=== PATIENT | female | born 1940 | race Caucasian/White ===

== ENCOUNTER 2022-09-15 11:32 | Emergency (ER) | payer MEDICARE, BC, SELFPAY ==
[2022-09-15 11:58] VITALS: BP 121/70; PULSE 64; RESP 16; TEMP 36.2; O2SAT 97; BMI 19.1
--- NOTE | 2022-09-15 12:08 | ED.BACK ---
HPI - Back Pain/Injury General Time Seen by Provider: 12:08 Date Seen: 09/15/22 Chief Complaint: Back Injury/Pain Stated Complaint: Lower L back pain Time Seen by Provider: 09/15/22 12:08 Source: patient and RN notes reviewed Mode of arrival: ambulatory Limitations: no limitations History of Present Illness HPI Narrative: Shasha is a very pleasant 82-year-old female with history of scoliosis, osteopenia who comes to the emergency room for evaluation of back pain. Patient notes the onset of back pain this morning with no significant injury. Patient notes that she did trip in the garden yesterday but did not fall. No significant pain at that time. She is showing me the area just to the left of L3-L2. She notes that this has been associated with nausea and retching. She has not had any diarrhea and in fact notes a few normal bowel movements. This is never happened to her before and she describes a very high pain tolerance. She did not take any medications prior to arrival at the ER. She notes that it is very difficult to lay flat and her position of choice is sitting in the rocking chair today. Shasha unfortunately lost her approximately 5 months ago. She had a memorial service for him on the [facility] at the very beginning of August and did a an extensive amount of driving throughout the [place] during that time. She did return and had a UTI that was treated. Since that time she has had no further symptoms. Related Data Home Medications Medication Instructions Recorded Confirmed epinephrine 0.3 mg/0.3 mL IM 09/15/22 injection, auto-injector mycophenolate mofetil 500 mg tablet 500 mg PO BID 09/15/22 09/15/22 Previous Rx's Medication Instructions Recorded finasteride 5 mg tablet 2.5 mg (1/2 x 5 mg) PO QDAY #45 08/06/22 tabs triamcinolone acetonide 0.1 % 1 applic topical BID #30 grams 08/06/22 topical cream Allergies Allergy/AdvReac Type Severity Reaction Status Date / Time bee venom protein (honey bee) Allergy Severe Anaphylaxis Verified 09/15/22 13:36 ciprofloxacin Allergy Unknown myasthenia Verified 09/15/22 13:36 gravis Review of Systems Status of ROS: Reports: 10 or more systems reviewed and unremarkable except as noted in History and below Const: Denies: fever or chills ENMT: Denies: neck pain or difficulty swallowing Cardio: Denies: chest pain, swelling of feet/ankles or shortness of breath with exertion Resp: Denies: shortness of breath or cough GI: Reports: nausea and vomiting; Denies: abdominal pain, difficulty swallowing or blood in stool : Denies: painful urination, urinary frequency, urinary urgency or blood in urine Musculo: Reports: back pain; Denies: neck pain or extremity pain Endo: Denies: excessive urination PFSH PFS Medical History History of thrombocytopenia ?Z86.2 - Personal history of diseases of the blood and blood-forming organs and certain disorders involving the immune mechanism (ICD-10) History of seborrheic keratosis ?Z87.2 - Personal history of diseases of the skin and subcutaneous tissue (ICD-10) History of scarlet fever ?Z86.19 - Personal history of other infectious and parasitic diseases (ICD-10) Hair loss ?L65.9 - Nonscarring hair loss, unspecified (ICD-10) Surgical History Status post bunionectomy ?Z98.890 - Other specified postprocedural states (ICD-10) History of tubal ligation (1974) ?Z98.51 - Tubal ligation status (ICD-10) History of loop electrical excision procedure (LEEP) (03/14/06) ?Z98.890 - Other specified postprocedural states (ICD-10) Family History Father Myocardial infarction, Onset Age: 69 Mother Skin cancer Other Lung cancer Social History Narrative: exercises daily- walking, yoga , 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 Very pleasant well-spoken woman in no acute distress. Very thin. Heart with regular rate and rhythm. Lungs are clear bilaterally. Palpation of spine yields no tenderness. Obvious curvature of the spine. Minimal tenderness noted just to the left of the L2-L3 lateral process. No skin changes are noted no evidence of lesions/shingles type picture. Patient is able to stand up and is moving without difficulty. Moving all extremities. Abdomen is soft and nontender. Const: Vital Signs, click to edit/add: Vital Signs - 24 hr 09/15/22 11:58 Temperature 97.2 F L Pulse Rate [Right Pulse Oximeter] 64 Respiratory Rate 16 Blood Pressure [Ri ght Upper Arm] 121/70 Pulse Oximetry 97 Oxygen Delivery Me thod Room Air Documenting provider has reviewed patient's vital signs: yes Course Course Hospital Course: At this time patient presents with the sudden onset of left low back flank pain. She has associated retching and nausea but no diarrhea fever chills urinary symptoms. Her pain or does appear to be out of proportion to exam. She is not currently on any blood thinners. Differential diagnosis includes but is not limited to UTI, pyelonephritis, compression fracture, retroperitoneal pathology, muscular skeletal strain, ureteral colic/nephrolithiasis, shingles. At this time do recommend abdominal CT as well as lumbar CT. Will also check CBC, comprehensive, CRP and urinalysis. Shasha's daughter is coming here and thus she is receptive to pain meds. Will use Zofran 4 mg and morphine 4 mg. Will also give 1 L normal saline. Reevaluation(s) Reevaluation #1: Patient's family now present. Very loving and supportive. Patient notes that she had started feeling better prior to the placement of the IV and feels even better after morphine and Zofran. Patient has history of the shingles vaccine in no previous history of shingles. I did tell her I did not see any lesions or suspicious areas but should we not find etiology of her discomfort on the CT this would be a consideration. Patient feels like she could urinate at this time. Vital Signs Vital signs: Initial Vital Signs Temperature 97.2 F L 09/15/22 11:58 Temperature Source Temporal Artery Scan 09/15/22 11:58 Pulse Rate 64 09/15/22 11:58 Pulse Rhythm Regular 09/15/22 11:58 Respiratory Rate 16 09/15/22 11:58 Blood Pressure 121/70 09/15/22 11:58 Blood Pressure Mean 87 09/15/22 11:58 Blood Pressure Position Sitting 09/15/22 11:58 Pulse Oximetry 97 09/15/22 11:58 Oxygen Delivery Method Room Air 09/15/22 11:58 Vital Signs Temperature 97.2 F L 09/15/22 11:58 Pulse Rate 64 09/15/22 11:58 Respiratory Rate 16 09/15/22 11:58 Blood Pressure 121/70 09/15/22 11:58 Pulse Oximetry 97 09/15/22 11:58 Oxygen Delivery Method Room Air 09/15/22 11:58 Temperature 97.2 F L 09/15/22 11:58 Pulse Rate 64 09/15/22 11:58 Respiratory Rate 16 09/15/22 11:58 Blood Pressure 121/70 09/15/22 11:58 Pulse Oximetry 97 09/15/22 11:58 Oxygen Delivery Method Room Air 09/15/22 11:58 MDM - Back Pain/Injury MDM Narrative Medical decision making narrative: 1. Low back pain-CBC and CRP reassuring at this time. Patient notes that she was actually feeling better prior to IV placement or morphine and is feeling even better at this point. Awaiting radiological over-read as well as urinalysis. 2. Disposition-this will case is signed out to my partner Dr. Levi Durant who will look to the urine result as well as official radiological read. Medical Records Attestation: I reviewed the patient's medical records. Lab Data Attestation: I reviewed the patient's lab results. Labs: Lab Results 09/15/22 Range/Units 12:40 WBC 6.09 (4.50-11.00) K/uL RBC 4.70 (4.00-5.20) m/uL Hgb 15.3 (12.0-16.0) gm/dL Hct 45.6 (33.0-51.0) % MCV 97 (80-100) fL MCH 33 (26-34) pg MCHC 34 (32-36) gm/dL RDW Coeff of [place] 12.2 (11.5-15.5) % Plt Count 168 (140-440) K/uL Neut % (Auto) 78.9 H (42.0-72.0) % Lymph % (Auto) 15.3 L (20-44) % [place] % (Auto) 5.4 (0.0-11.0) % Eos % (Auto) 0.2 (0.0-7.0) % Baso % (Auto) 0.2 (0.0-3.0) % Neut # (Auto) 4.80 (1.7-7.0) K/uL Lymph # (Auto) 0.90 (0.90-2.90) K/uL [place] # (Auto) 0.30 (0.00-0.90) K/UL Eos # (Auto) 0.01 (0.00-0.50) K/uL Baso # (Auto) 0.01 (0.00-0.30) K/uL Abs Immat Gran (auto) 0.00 (0.00-0.30) K/uL Imm/Tot Granulo (auto) 0.0 % Sodium 133 L (135-149) mmol/L Potassium 3.9 (3.6-5.1) mmol/L Chloride 97 (96-114) mmol/L Carbon Dioxide 29 (20-32) mmol/L BUN 16 (7-30) mg/dL Creatinine 0.7 (0.5-1.5) mg/dL Estimated Creat Clear 34.49 Estimated GFR 85 ml/min Glucose 105 (60-115) mg/dL Calcium 9.1 (8.4-10.6) mg/dL Total Bilirubin 0.6 (0.1-1.5) mg/dL AST 37 H (12-35) U/L ALT 28 (4-35) U/L Alkaline Phosphatase 72 (40-150) U/L C-Reactive Protein < 0.5 L (0.5-1.0) mg/dL Total Protein 7.0 (6.0-8.3) g/dL Albumin 4.2 (3.3-5.0) g/dL Imaging Data CT scan - abdomen: Attestation: I have reviewed the pertinent imaging results. Lumbar spine CT: Attestation: I have reviewed the pertinent imaging results. Discharge Plan Discharge Prescriptions: No Action finasteride 5 mg tablet 2.5 mg PO QDAY Qty: 45 1RF triamcinolone acetonide 0.1 % cream 1 applic topical BID Qty: 30 1RF mycophenolate mofetil 500 mg tablet 500 mg PO BID epinephrine 0.3 mg/0.3 mL auto-injector IM Follow Up/Referrals: Mabel,Anastdemarioos A, MD, FAAD [Staff Physician] -
--- NOTE | 2022-09-15 12:22 | CRLHL7_ITS ---
For Patients: As a result of the Century Cures Act, medical imaging exams and procedure reports are released immediately into your electronic medical record. You may view this report before your referring provider. If you have questions, please contact your health care provider. INDICATION: Left flank and lumbar pain. TECHNIQUE: Volumetric helical scanning of the abdomen and pelvis was performed with 56 cc of Isovue 370 contrast material IV. Coronal and sagittal reconstructions were obtained. COMPARISON: Today`s lumbar spine CT FINDINGS: No urinary tract stone or obstruction is demonstrated. The kidneys are unremarkable except for a 1 cm left renal parenchymal cyst or angiomyolipoma. The bladder is grossly negative. The uterus is grossly negative. Neither ovary is identified with certainty. The liver is normal in size, shape and attenuation. No bile duct dilation is evident. The spleen is within normal limits. The adrenal glands are unremarkable. The pancreas is within normal limits. No lymphadenopathy is evident. No free fluid is demonstrated. The bowel is unremarkable. Advanced lumbar spine degenerative changes are noted along with a moderate lumbar dextroscoliosis. The lung bases are essentially clear, and heart size is normal. IMPRESSION: 1. Etiology of left flank pain not evident. 2. Advanced lumbar spine degenerative changes and moderate scoliosis. Please note that all CT scans at this facility use dose modulation, iterative reconstruction, and/or weight-based dosing when appropriate to reduce radiation dose to as low as reasonably achievable. Dictated by Naun Schmidt MD @ 09/15/2022 2:12:42 PM (Electronically Signed)
--- NOTE | 2022-09-15 12:22 | CRLHL7_ITS ---
For Patients: As a result of the Century Cures Act, medical imaging exams and procedure reports are released immediately into your electronic medical record. You may view this report before your referring provider. If you have questions, please contact your health care provider. INDICATION: Left flank and lumbar pain. L3 pain. TECHNIQUE: Noncontrast CT images acquired through the lumbar spine. COMPARISON: None. FINDINGS: Advanced dextroscoliosis. The lumbar lordosis is preserved. No acute fracture. Severe disc height loss from L1-2 through L5-S1. Multilevel facet arthropathy, moderate at L4-5. Multilevel posterior disc bulging and endplate spondylitic ridging. There is at least moderate spinal canal narrowing at L4-5. Moderate neural foraminal narrowing on the left at L3-4 and L4-5. Sacroiliac joint degenerative changes. IMPRESSION: 1. No acute fracture. 2. Multilevel lumbar spondylosis, including at least moderate spinal canal narrowing stenosis at L4-5. 3. Advanced dextroscoliosis. Please note that all CT scans at this facility use dose modulation, iterative reconstruction, and/or weight-based dosing when appropriate to reduce radiation dose to as low as reasonably achievable. Dictated by Delvin Yanes MD @ 09/15/2022 2:15:26 PM (Electronically Signed)
[2022-09-15 12:59] LABS: Basophils Absolute Auto 0.01 K/uL (0.00-0.30); Basophils Percent Auto 0.2 % (0.0-3.0); Eosinophils Absolute Auto 0.01 K/uL (0.00-0.50); Eosinophils Percent Auto 0.2 % (0.0-7.0); Hematocrit 45.6 % (33.0-51.0); Hemoglobin* 15.3 gm/dL (12.0-16.0); Lymphocytes Percent Auto 15.3 % (20-44); Mean Corpuscular HGB Conc 34 gm/dL (32-36); Mean Corpuscular Hemoglobin 33 pg (26-34); Mean Corpuscular Volume 97 fL (80-100); Monocytes Percent Auto 5.4 % (0.0-11.0); Neutrophils Percent Auto 78.9 % (42.0-72.0); Platelet Count* 168 K/uL (140-440); RDW Coefficient of Variation % 12.2 % (11.5-15.5); White Blood Count* 6.09 K/uL (4.50-11.00)
[2022-09-15] MEDS: ONDANSETRON 2 MG/ML inj 4 MG IVP (13:00)
[2022-09-15 13:01] LABS: Slide Review Reflex No
[2022-09-15] MEDS: 0.9 % SODIUM CHLORIDE 1000 ml 1,000 ML IV (13:01)
[2022-09-15] MEDS: MORPHINE 4 MG/ML INJ IVP (13:01)
[2022-09-15 13:20] LABS: Albumin* 4.2 g/dL (3.3-5.0); Chloride* 97 mmol/L (96-114); Potassium* 3.9 mmol/L (3.6-5.1); Sodium* 133 mmol/L (135-149)
[2022-09-15 13:22] LABS: Aspartate Amino Transferase* 37 U/L (12-35); Bilirubin Total* 0.6 mg/dL (0.1-1.5); Carbon Dioxide* 29 mmol/L (20-32); Creatinine* 0.7 mg/dL (0.5-1.5); Est. Creatinine Clearance* 34.49; Estimated Glomerular Filt Rate 85 ml/min
[2022-09-15 13:23] LABS: Alanine Aminotransferase* 28 U/L (4-35); Alkaline Phosphatase* 72 U/L (40-150); Blood Urea Nitrogen* 16 mg/dL (7-30); Glucose* 105 mg/dL (60-115)
[2022-09-15 13:24] LABS: Calcium* 9.1 mg/dL (8.4-10.6)
[2022-09-15 14:03] LABS: C Reactive Protein* < 0.5 mg/dL (0.5-1.0)
[2022-09-15 14:19] VITALS: BP 118/68; PULSE 68; RESP 16; TEMP 36.7; O2SAT 95
--- NOTE | 2022-09-15 14:19 | ED.NURSE ---
Patient reports total resolution of her back pain at this time.
[2022-09-15 14:47] LABS: Appearance Urine Clear (Clear); Bilirubin Urine Negative (Negative); Blood Urine Negative (Negative); Color Urine Yellow (Yellow); Glucose Urine Negative (Negative); Ketones Urine 1+ (Negative); Leukocyte Esterase Urine Negative (Negative); Nitrite Urine Negative (Negative); Protein Urine Negative (Negative); Specific Gravity Urine 1.015 (1.000-1.030); Urobilinogen Urine 0.2 (0.2-1.0)
[2022-09-15 15:14] LABS: RBC Urine 0-2 (0-2); Squamous Epithelial Cell Urine Few (None-Few); WBC Urine 0-2 (0-5)
== END 2022-09-15 15:34 | disposition home or self-care (01) ==
PROVIDERS: Emergency Provider Family Medicine; PCP Internal Medicine
DX: M54.50 Low back pain, unspecified (principal)
CPT/HCPCS: 36415; 72131; 74177; 80053; 81001; 85025; 86140; 96374; 96375; 99283; 99284; J2270; J2405; J7030; Q9967